=== PATIENT | female | born 1970 | race African-American/Black ===

== ENCOUNTER 2019-11-08 18:36 | Emergency (ER) | payer SELFPAY ==
--- NOTE | 2019-11-08 19:00 | RAD ---
EXAM: Single view of the chest HISTORY: Hypertension COMPARISON: None FINDINGS: Single view of the chest shows a normal sized cardiomediastinal silhouette. There is no jesse dence of consolidation, mass, or pleural effusion. No acute osseous abnormality. IMPRESSION: No evidence of acute cardiopulmonary disease
[2019-11-08] MEDS ORDERED: Metoprolol Tartrate 25 MG TAB ONE (19:04)
[2019-11-08] MEDS ORDERED: Lisinopril 10 MG TAB ONE (19:05)
--- NOTE | 2019-11-08 19:24 | RAD ---
EXAM: 3 views of the left foot HISTORY: Foot pain after slamming a chair onto COMPARISON: None FINDINGS: 3 views of the left foot shows no evidence of acute fracture or dislocation. Moderate dorsa l soft tissue swelling is seen. No degenerative changes are present. IMPRESSION: No evidence of acute osseous abnormality.
[2019-11-08 19:31] LABS: #Basophils 0.1 thou/uL (0.0-0.2); #Eosinphils 0.6 thou/uL (0.0-0.7); #Lymphocytes 2.3 thou/uL (1.20-3.40); #Monocytes 0.5 thou/uL (0.11-0.59); #Neutrophils 2.6 thou/uL (1.40-6.50); %Basophils 1.1 % (0.0-1.0); %Eosinophils 10.1 % (0.0-10.0); %Lymphocytes 38.1 % (21.0-51.0); %Monocytes 8.6 % (0.0-10.0); %Neutrophils 42.2 % (42.0-75.0); Hemoglobin 11.4 g/dL (12.0-16.0); Mean Corpuscular HGB CONC 31.6 g/dL (32.0-36.0); Mean Corpuscular Hemoglobin 26.8 pg (27.0-31.0); Mean Corpuscular Volume 84.9 fL (78.0-98.0); Mean Platelet Volume 7.8 fL (7.4-10.4); Platelet Count 308 thou/uL (130-400); RBC Distribution Width 14.2 % (11.5-14.5); Red Blood Cell (RBC) Count 4.25 mill/uL (4.20-5.40); White Blood Cell (WBC) Count 6.1 thou/uL (4.8-10.8)
[2019-11-08 19:52] LABS: ALT (SGPT) 13 U/L (8-55); AST (SGOT) 19 U/L (5-34); Albumin 3.9 g/dL (3.5-5.0); Alkaline Phosphatase 63 U/L (40-110); Anion Gap 10 mmol/L (10-20); BUN (Urea Nitrogen) 13 mg/dL (7.0-18.7); Bilirubin, Total Less than 0.2 mg/dL (0.2-1.2); Calc. Creatinine Clearance 0 mL/min (70-130); Calcium 8.8 mg/dL (7.8-10.44); Carbon Dioxide 27 mmol/L (22-29); Chloride 106 mmol/L (98-107); Estimated GFR-MDRD 51; Globulin 3.7 g/dL (2.4-3.5); Glucose 113 mg/dL (70-105); Lipase 18 U/L (8-78); Potassium 4.1 mmol/L (3.5-5.1); Protein, Total 7.6 g/dL (6.0-8.3); Sodium 139 mmol/L (136-145)
[2019-11-08] MEDS ORDERED: Ketorolac Tromethamine 30 MG/ML VIAL ONE (20:02)
--- NOTE | 2019-11-10 14:38 | EKG ---
Test Reason : Blood Pressure : / mmHG Vent. Rate : 088 BPM Atrial Rate : 088 BPM P-R Int : 158 ms QRS Dur : 088 ms QT Int : 400 ms P-R-T Axes : 064 065 059 degrees QTc Int : 484 ms Normal sinus rhythm Left atrial enlargement Left ventricular hypertrophy Abnormal ECG Confirmed by CHRISTIN FRANCIS, NIRALI Clemons ([id number]), editor magazine ZHEN SWAIN ([id number]) on 11/10/2019 2:38:23 PM Referred By: Confirmed By:NIRALI WALLER MD
== END 2019-11-08 20:49 | disposition home or self-care (01) ==
LOC: ERS 18:36
DX: S90.32XA Contusion of left foot, initial encounter (principal); I10 Essential (primary) hypertension; W20.8XXA Other cause of strike by thrown, projected or falling object, initial encounter
CPT/HCPCS: 71045; 80053; 83690; 85025; 93005; 96374; J1885